=== PATIENT | female | born 1985 | race Caucasian/White ===

== ENCOUNTER 2016-11-27 02:43 | Emergency (ER) | payer SELFPAY ==
--- NOTE | 2016-11-27 03:16 | EDM.PDOC ---
ED HPI GENERAL MEDICAL PROBLEM - General Chief Complaint: Drug or Alcohol Abuse Stated Complaint: MEDICAL VIA NORTH OVERDOSE Time Seen by Provider: 11/27/16 02:51 Source of Information: Reports: Patient, Police, RN Notes Reviewed History Limitations: Reports: Altered Mental Status, Intoxication - History of Present Illness INITIAL COMMENTS - FREE TEXT/NARRATIVE: 31-year-old female brought in by law enforcement EMS services for evaluation was found at a constitution party unresponsive her significant other called EMS services when she went unresponsive when EMS and law enforcement arrived she was communicating with them she does arouse and will communicate and follow commands does admit to consuming alcohol and Xanax denies any other recreational drugs at this time cannot obtain review of systems secondary to obtunded state 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: Neurological History: Reports: Other (See Below) Other Neuro History: unable to obtain Psychiatric History: Reports: Other (See Below) Other Psychiatric History: unable to obtain Endocrine/Metabolic History: Reports: Other (See Below) Other Endocrine/Metabolic History: unable to obtain Hematologic History: Reports: Other (See Below) Other Hematologic History: unable to obtain Immunologic History: Reports: Other (See Below) Other Immunologic History: unable to obtain Oncologic (Cancer) History: Reports: Other (See Below) Other Oncologic History: unable to obtain Dermatologic History: Reports: Other (See Below) Other Dermatologic History: unable to obtain - Infectious Disease History Infectious Disease History: Reports: Other (See Below) Other Infectious Disease History: unknown Social & Family History - Tobacco Use Smoking Status *Q: Unknown Ever Smoked Second Hand Smoke Exposure: No - Caffeine Use Caffeine Use: Reports: Other Other Caffeine Use: unknown - Recreational Drug Use Recreational Drug Use: Yes Recreational Drug Type: Reports: Xanax ED ROS GENERAL - Review of Systems Review Of Systems: Unable To Obtain - Physical Exam Exam: See Below Text/Narrative:: General: Female obtunded but arousable will follow commands minimally communicative GCS of 13 HEENT: head is atraumatic normocephalic, eyes pupils equal round reactive to light, sclera clear no conjunctivitis appreciated. Ears tympanic membranes clear and reeves landmarks and light reflex are present bilaterally canals are clear. Nose no septal deviation, nares are clear, no blood present. Mouth mucosa is moist and pink no erythema or exudate noted in soft palate, tongue is midline uvula is midline, dentition is intact. Neck: Supple no thyromegaly no tracheal deviation. Nodes: Cervical nodes subclavicular nodes nontender no palpable lymphadenopathy noted. Lungs: clear to auscultation bilaterally with symmetrical respirations, no adventitious noise appreciated. CV: Regular rate and rhythm S1 and S2 appreciated no murmurs rubs or gallops noted. Abdomen: Soft, nontender, no palpable masses or organomegaly appreciated, no distention no guarding bowel sounds are present, . Neuro: Cranial nerves II through XII grossly intact Skin: Warm and dry, intact Extremities: No lower extremity edema appreciated, Course - Vital Signs Last Recorded V/S: Last Vital Signs Temp 95.7 F 11/27/16 02:51 Pulse 72 11/27/16 03:01 Resp 16 11/27/16 03:01 BP 120/87 11/27/16 03:01 Pulse Ox 94 L 11/27/16 03:01 - Orders/Labs/Meds Orders: Active Orders 24 hr Category Date Time Status EKG Documentation Completion [RC] ASDIRECTED Care 11/27/16 03:12 Active ACETAMINOPHEN [CHEM] Urgent Lab 11/27/16 03:11 Ordered CBC WITH AUTO DIFF [HEME] Urgent Lab 11/27/16 03:11 Ordered COMPREHENSIVE METABOLIC PN,CMP [CHEM] Urgent Lab 11/27/16 03:11 Ordered DRUG SCREEN,SERUM REFLEX [REF] Stat Lab 11/27/16 03:13 Ordered ETHANOL BLOOD MEDICAL [CHEM] Urgent Lab 11/27/16 03:11 Ordered SALICYLATE [CHEM] Urgent Lab 11/27/16 03:11 Ordered Sodium Chloride 0.9% [Normal Saline] 1,000 ml Med 11/27/16 04:00 Active IV ASDIRECTED EKG 12 Lead [EK] Stat Ther 11/27/16 03:12 Ordered Medication Orders Sodium Chloride (Normal Saline) 1,000 mls @ 999 mls/hr IV ASDIRECTED [facility] Labs: Laboratory Tests 11/27/16 11/27/16 Range/Units 03:22 03:22 Urine Color Yellow Urine Appearance Clear Urine pH 6.0 (4.5-8.0) Ur Specific [place] 1.010 (1.008-1.030) Urine Protein Negative (NEGATIVE) mg/dL Urine Glucose (UA) Normal (NEGATIVE) mg/dL Urine Ketones Negative (NEGATIVE) mg/dL Urine Occult Blood Negative (NEGATIVE) Urine Nitrite Negative (NEGATIVE) Urine Bilirubin Negative (NEGATIVE) Urine Urobilinogen 1 (NORMAL) mg/dL Ur Leukocyte Esterase Negative (NEGATIVE) Urine RBC 0-5 (0-5) Urine WBC 0-5 (0-5) Ur Epithelial Cells Few Amorphous Sediment Not seen Urine Bacteria Not seen Urine Mucus Not seen Urine HCG, Qual Negative Meds: Medications Generic Name Dose Route Start Last Admin Trade Name Freq PRN Reason Stop Dose Admin Sodium Chloride 1,000 mls @ 999 mls/hr 11/27/16 04:00 Normal Saline IV ASDIRECTED [facility] - Re-Assessments/Exams Free Text/Narrative Re-Assessment/Exam: 11/27/16 03:50 Patient is now arousable and communicative states she would like to go home she does have a residence that she can stat with a friend's house 2 blocks from the hospital she would like to walk. She declines any further intervention at this time Departure - Departure Time of Disposition: 03:51 Disposition: Home, Self-Care 01 Condition: Fair Clinical Impression: Intoxication - Discharge Information Referrals: PCP,None [Primary Care Provider] - Forms: ED Department Discharge Additional Instructions: Please follow-up with your primary care provider as needed, call or return to the emergency department worsening of symptoms - My Orders Last 24 Hours: My Active Orders 11/27/16 03:11 ACETAMINOPHEN [CHEM] Urgent CBC WITH AUTO DIFF [HEME] Urgent COMPREHENSIVE METABOLIC PN,CMP [CHEM] Urgent ETHANOL BLOOD MEDICAL [CHEM] Urgent SALICYLATE [CHEM] Urgent 11/27/16 03:12 EKG Documentation Completion [RC] ASDIRECTED EKG 12 Lead [EK] Stat 11/27/16 03:13 DRUG SCREEN,SERUM REFLEX [REF] Stat 11/27/16 04:00 Sodium Chloride 0.9% [Normal Saline] 1,000 ml IV ASDIRECTED - Assessment/Plan Last 24 Hours: My Active Orders 11/27/16 03:11 ACETAMINOPHEN [CHEM] Urgent CBC WITH AUTO DIFF [HEME] Urgent COMPREHENSIVE METABOLIC PN,CMP [CHEM] Urgent ETHANOL BLOOD MEDICAL [CHEM] Urgent SALICYLATE [CHEM] Urgent 11/27/16 03:12 EKG Documentation Completion [RC] ASDIRECTED EKG 12 Lead [EK] Stat 11/27/16 03:13 DRUG SCREEN,SERUM REFLEX [REF] Stat 11/27/16 04:00 Sodium Chloride 0.9% [Normal Saline] 1,000 ml IV ASDIRECTED Plan: Assessment Acuity = acute Site and laterality = intoxication Etiology = probable combination of alcohol and benzodiazepines Manifestations = obtunded state now resolved Location of injury = Home Lab values = urinalysis pending Plan She refused any further care she does have a place to go to where she feels safe therefore I'm willing to discharge her follow-up with her primary care as needed Patient was in agreement with the plan all questions were answered, they were instructed to return to the emergency department or call for worsening symptoms. This note was dictated using [employer] voice recognition software please call with any questions.
[2016-11-27] MEDS ORDERED: Sodium Chloride 0.9% 1,000 ML IV SCH (04:00)
== END 2016-11-27 04:40 | disposition home or self-care (01) ==
LOC: JP.ED 02:43
DX: F10.120 Alcohol abuse with intoxication, uncomplicated (principal)
CPT/HCPCS: 80305; 81001; 81025; 93005; 96360; 99284; J7040; 93010; 99283

== ENCOUNTER 2020-03-10 00:31 | Emergency (ER) | payer SELFPAY ==
--- NOTE | 2020-03-10 01:04 | EDM.PDOC ---
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 The patient symptoms started 2 days ago and have continued to worsen. Patient is but is unclear as to whether she has 2 months or 5 months . She reports her last period was in September 2019. She has had no care. He has no primary doctor. Patient did report to nursing that she occasionally uses marijuana and methamphetamines. The patient is G5, P4004. She denies any fever, chills, nausea or vomiting, diarrhea or constipation. She is not had any urinary symptoms including urgency, frequency, or burning with urination. She does have severe right-sided flank pain. right flank Pain Score (Numeric/FACES): 7 - Related Data Allergies Allergy/AdvReac Type Severity Reaction Status Date / Time No Known Allergies Allergy Verified 03/10/20 00:58 Home Meds: Home Meds NK [No Known Home Meds] 03/10/20 [History] Past Medical History HEENT History: Reports: Other (See Below) Other HEENT History: unable to obtain Cardiovascular History: Reports: Other (See Below) Other Cardiovascular History: unable to obtain Respiratory History: Reports: Other (See Below) Other Respiratory History: unable to obtain Gastrointestinal History: Reports: Other (See Below) Other Gastrointestinal History: unable to obtain Genitourinary History: Reports: Other (See Below) Other Genitourinary History: unable to obtain 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: Neurological History: Reports: Other (See Below) Other Neuro History: unable to obtain Psychiatric History: Reports: Other (See Below) Other Psychiatric History: unable to obtain Endocrine/Metabolic History: Reports: Other (See Below) Other Endocrine/Metabolic History: unable to obtain Hematologic History: Reports: Other (See Below) Other Hematologic History: unable to obtain Immunologic History: Reports: Other (See Below) Other Immunologic History: unable to obtain Oncologic (Cancer) History: Reports: Other (See Below) Other Oncologic History: unable to obtain Dermatologic History: Reports: Other (See Below) Other Dermatologic History: unable to obtain - Infectious Disease History Infectious Disease History: Reports: Other (See Below) Other Infectious Disease History: pt does not know Social & Family History - Tobacco Use Tobacco Use Status *Q: Never Tobacco User - Caffeine Use Caffeine Use: Reports: Coffee Other Caffeine Use: unknown - Recreational Drug Use Recreational Drug Use: Yes Drug Use in Last 12 Months: Yes Recreational Drug Type: Reports: Marijuana/Hashish, Methamphetamine ED ROS GENERAL - Review of Systems Review Of Systems: See Below Constitutional: Reports: No Symptoms HEENT: Reports: No Symptoms Respiratory: Reports: No Symptoms Cardiovascular: Reports: No Symptoms Endocrine: Reports: No Symptoms GI/Abdominal: Reports: Abdominal Pain (Right upper quadrant), Nausea. Denies: Vomiting : Reports: Flank Pain (Right flank) Musculoskeletal: Reports: No Symptoms Skin: Reports: No Symptoms Neurological: Reports: No Symptoms Psychiatric: Reports: No Symptoms Hematologic/Lymphatic: Reports: No Symptoms Immunologic: Reports: No Symptoms ED EXAM - Physical Exam Exam: See Below Exam Limited By: No Limitations General Appearance: Alert, Anxious, Moderate Distress Eye Exam: Bilateral Eye: EOMI, PERRL Head: Atraumatic, Normocephalic Neck: Normal Inspection, Supple, Non-Tender, Full Range of Motion Respiratory/Chest: No Respiratory Distress, Lungs Clear, Normal Breath Sounds Cardiovascular: Normal Peripheral Pulses, Regular Rate, Rhythm, No Murmur GI/Abdominal Exam: Normal Bowel Sounds, Soft, Tender (Tenderness palpation right upper quadrant and right flank). No: Guarding, Rigid, Rebound Fundal Height In cm: 20 Heart Tones per Min: 138 Movement: Active Back Exam: Normal Inspection, Full Range of Motion, CVA Tenderness (R) Extremities: Normal Inspection, Normal Range of Motion, No Pedal Edema, Normal Capillary Refill Neurological: Alert, Oriented, Normal Cognition, No Motor/Sensory Deficits Psychiatric: Anxious, Other (Patient is not very forthcoming with answers and does appear to be under the influence of something at this time.) Skin Exam: Warm, Dry, Intact, Normal Color, No Rash Lymphatic: No Adenopathy Course - Vital Signs Last Recorded V/S: Last Vital Signs Temp 36.5 C 03/10/20 01:02 Pulse 85 03/10/20 01:02 Resp 20 03/10/20 01:02 BP 122/70 03/10/20 01:02 Pulse Ox 100 03/10/20 01:02 - Orders/Labs/Meds Orders: Active Orders 24 hr Category Date Time Status Renal Ltd Bi [US] Stat Exams 03/10/20 01:25 Ordered DRUG SCREEN, URINE [URCHEM] Stat Lab 03/10/20 01:12 Received HCG QUANTITATIVE [CHEM] Stat Lab 03/10/20 00:58 Ordered Labs: Laboratory Tests 03/10/20 03/10/20 Range/Units 01:05 01:12 WBC 12.4 H (4.5-11.0) K/uL RBC 3.96 (3.30-5.50) M/uL Hgb 11.5 L (12.0-15.0) g/dL Hct 35.5 L (36.0-48.0) % MCV 90 (80-98) fL MCH 29 (27-31) pg MCHC 32 (32-36) % Plt Count 471 H (150-400) K/uL Neut % (Auto) 71 H (36-66) % Lymph % (Auto) 21 L (24-44) % [place] % (Auto) 7 H (2-6) % Eos % (Auto) 2 (2-4) % Baso % (Auto) 0 (0-1) % Urine Color Yellow (YELLOW) Urine Appearance Cloudy A (CLEAR) Urine pH 7.0 (5.0-8.0) Ur Specific [place] >= 1.030 (1.008-1.030) Urine Protein >=300 H (NEGATIVE) mg/dL Urine Glucose (UA) Negative (NEGATIVE) mg/dL Urine Ketones Negative (NEGATIVE) mg/dL Urine Occult Blood Small H (NEGATIVE) Urine Nitrite Positive H (NEGATIVE) Urine Bilirubin Negative (NEGATIVE) Urine Urobilinogen 4.0 H (0.2-1.0) EU/dL Ur Leukocyte Esterase Moderate H (NEGATIVE) Urine RBC (0-5) Urine WBC Packed H (0-5) - Radiology Interpretation Free Text/Narrative:: I performed a limited OB bedside ultrasound to evaluate for viability. There is a single intrauterine with a heart rate measured at 138 bpm by M-mode. The child size is calculated at 20 weeks 5 days by femur length and 21 weeks 1 day by biparietal diameter. There is an anterior placenta which looks to be grade 2. There is an adequate amount of amniotic fluid. A brief look at the right kidney shows hydronephrosis. We will get a formal ultrasound of the bilateral kidneys to assess for possible obstruction. Formal ultrasound of both kidneys show right-sided hydronephrosis with diminished ureteral jet in the bladder on the right side compared to the left. The left side kidney is normal size and caliber with normal urinary flow. Formal reading will result in the morning. - Re-Assessments/Exams Free Text/Narrative Re-Assessment/Exam: 03/10/20 01:29 the patient has a mild leukocytosis of 12.6 with a left shift. Her urinalysis is significant for pyuria with packed WBCs per high field view, positive nitrites and leukocyte esterase. We will get a urine culture and initiate antibiotics with cephalexin 500 mg twice daily. 03/10/20 02:37 ultrasound is complete and demonstrates right-sided hydronephrosis which is worrisome for partial obstruction of the ureter due to the . I will discussed the case with urology at [facility] to give recommendations on management of this. Certainly we will continue to treat the pyelonephritis with cephalexin 500 mg twice daily, the question is timing of whether or not this patient needs a stent. As there is an infection this may require more emergent intervention. 03/10/20 02:51 I discussed the case with the urologist from [facility]. He recommended we could either try several days of antibiotics and possibly avoid eating a ureteral stent if she improves, but that she would need to have close interval follow-up in the clinic in 1 to 2 days to make sure she is not becoming septic. I have instructed the patient to return to the ED should she develop any significant fever or worsening of pain. An alternative would be to transfer her tonight to [facility] for admission and then stent placement in the morning. The patient would rather follow-up in the clinic on Thursday or Thursday so I will put in a request for follow-up. We will continue with the cephalexin 500 mg twice daily. Urine culture is pending. Indications to return to the ED were discussed. Patient was discharged in satisfactory condition. Departure - Departure Time of Disposition: 02:55 Disposition: Home, Self-Care 01 Clinical Impression: Pyelonephritis affecting in second trimester, with 21 completed weeks gestation, Marijuana use, episodic, Methamphetamine use, Hydronephrosis of right kidney - Discharge Information Instructions: Preventing Illegal Drug Use During , Pyelonephritis During , Care Referrals: PCP,None [Primary Care Provider] - Forms: ED Department Discharge Care Plan Goals: Your labs show a significant urinary tract infection including your kidney. We will start you on antibiotics with cephalexin 500 mg twice daily for 10 days. Urine culture has been obtained and you may be contacted if the organism causing the infection is resistant to this antibiotic. You need to continue to push plenty of fluids to produce urine to help keep the ureter open. You need to see a primary care provider as soon as possible to establish care of this . This would include the initiation of a multivitamin with folate which is very important in the development of the nerve tissue of the fetus. I would encourage you to discontinue the use of marijuana and methamphetamines during this as it will result in alteration of the fetus that will be lifelong. I have placed a referral for you to follow-up in the [facility] in [place] on Thursday or Thursday. You will be contacted Thursday to arrange this appointment. Should you develop any significant fever or chills please return to the ED immediately as this may be early signs of developing septic shock. Please fill and take your prescription antibiotics as prescribed. Sepsis Event Note (ED) - Focused Exam Vital Signs: Vital Signs Temp Pulse Resp BP Pulse Ox 03/10/20 01:02 36.5 C 85 20 122/70 100 - Problem List & Annotations (1) Marijuana use, episodic SNOMED Code(s): 319952942 Code(s): F12.90 - CANNABIS USE, UNSPECIFIED, UNCOMPLICATED Status: Chronic Priority: High Current Visit: Yes (2) Methamphetamine use SNOMED Code(s): 052936366 Code(s): F15.10 - OTHER STIMULANT ABUSE, UNCOMPLICATED Status: Chronic Priority: High Current Visit: Yes (3) with 21 completed weeks gestation SNOMED Code(s): 44633081 Code(s): Z3A.21 - 21 WEEKS GESTATION OF Status: Acute Priority: High Current Visit: Yes (4) Pyelonephritis affecting in second trimester SNOMED Code(s): 31256973761678, 38395118890678 Code(s): O23.02 - INFECTIONS OF KIDNEY IN , SECOND TRIMESTER Status: Acute Priority: High Current Visit: Yes (5) Hydronephrosis of right kidney SNOMED Code(s): 91645740 Code(s): N13.30 - UNSPECIFIED HYDRONEPHROSIS Status: Acute Priority: High Current Visit: Yes - Problem List Review Problem List Initiated/Reviewed/Updated: Yes - My Orders Last 24 Hours: My Active Orders 03/10/20 00:58 HCG QUANTITATIVE [CHEM] Stat 03/10/20 01:12 DRUG SCREEN, URINE [URCHEM] Stat 03/10/20 01:25 Renal Ltd Bi [US] Stat - Assessment/Plan Last 24 Hours: My Active Orders 03/10/20 00:58 HCG QUANTITATIVE [CHEM] Stat 03/10/20 01:12 DRUG SCREEN, URINE [URCHEM] Stat 03/10/20 01:25 Renal Ltd Bi [US] Stat
[2020-03-10] MEDS ORDERED: Cephalexin 250 MG Cap PO ONE (01:32)
--- NOTE | 2020-03-12 09:01 | US ---
Renal Ltd Bi CLINICAL HISTORY: Right flank pain. COMPARISON: None. TECHNIQUE: Multiple sonographic images were obtained through the kidneys in the sagittal and transverse projections. Right kidney measures 12.2 x 5.4 x 6.2 cm. There is hydronephrosis. Cortical thickness is 1.9 cm. No stones are seen Left kidney measures 10.0 x 6.0 x 6.9 cm. It is normal parenchymal echotexture. Cortex measures 1.5 cm. Scans through the bladder shows no filling defects. Bilateral ureteral jets are identified.. No stones are seen IMPRESSION: Right-sided hydronephrosis Patent right ureter with a right ureteral jet seen in the bladder. Partial obstruction is not excluded
== END 2020-03-10 03:07 | disposition home or self-care (01) ==
LOC: JP.ED 00:31
DX: O23.02 Infections of kidney in pregnancy, second trimester (principal); N13.6 Pyonephrosis; B96.89 Other specified bacterial agents as the cause of diseases classified elsewhere; F15.90 Other stimulant use, unspecified, uncomplicated; F12.90 Cannabis use, unspecified, uncomplicated; Z3A.21 21 weeks gestation of pregnancy
CPT/HCPCS: 36415; 76775; 80305; 81001; 84702; 85025; 87086; 87088; 87186; 99284; A9270

== ENCOUNTER 2020-11-21 19:58 | Emergency (ER) | payer MEDICAID ==
[2020-11-21] MEDS ORDERED: HYDROmorphone 0.5 MG/0.5 ML Syringe IVPUSH ONE (20:37)
[2020-11-21] MEDS ORDERED: Sodium Chloride 0.9% 1,000 ML IV SCH ×2 (20:45→22:45)
[2020-11-21] MEDS ORDERED: cefTRIAXone 2 GM in Sodium Chloride 0.9% 50 ML IV ONE (21:22)
--- NOTE | 2020-11-21 22:50 | EDM.PDOC ---
ED HPI GENERAL MEDICAL PROBLEM - General Chief Complaint: Abdominal Pain Stated Complaint: ABD/BACK PAIN Time Seen by Provider: 11/21/20 20:30 Source of Information: Reports: Patient, Family History Limitations: Reports: No Limitations - History of Present Illness INITIAL COMMENTS - FREE TEXT/NARRATIVE: pt arrived with a history of recurrent UTIs. She has back pain and some lower abdomanal pin. She has had chills. She has not been vomiting. Onset: Gradual, Other (last 2 days. ) Duration: Hour(s): Location: Reports: Abdomen Associated Symptoms: Reports: Weakness Abdomen Pain Score (Numeric/FACES): 8 - Related Data Allergies Allergy/AdvReac Type Severity Reaction Status Date / Time Latex, Natural Rubber Allergy Rash Verified 11/21/20 20:25 Home Meds: Home Meds NK [No Known Home Meds] 03/10/20 [History] Past Medical History HEENT History: Reports: Other (See Below) Other HEENT History: unable to obtain Cardiovascular History: Reports: Other (See Below) Other Cardiovascular History: unable to obtain Respiratory History: Reports: Other (See Below) Other Respiratory History: unable to obtain Gastrointestinal History: Reports: Other (See Below) Other Gastrointestinal History: unable to obtain Genitourinary History: Reports: Pyelonephritis Other Genitourinary History: unable to obtain 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: Neurological History: Reports: Concussion Other Neuro History: unable to obtain Psychiatric History: Reports: Addiction, Anxiety, Depression, PTSD Other Psychiatric History: unable to obtain Endocrine/Metabolic History: Reports: Other (See Below) Other Endocrine/Metabolic History: unable to obtain Hematologic History: Reports: Other (See Below) Other Hematologic History: unable to obtain Immunologic History: Reports: Other (See Below) Other Immunologic History: unable to obtain Oncologic (Cancer) History: Reports: Other (See Below) Other Oncologic History: unable to obtain Dermatologic History: Reports: Other (See Below) Other Dermatologic History: unable to obtain - Infectious Disease History Infectious Disease History: Reports: Other (See Below) Other Infectious Disease History: pt does not know Social & Family History - Tobacco Use Tobacco Use Status *Q: Never Tobacco User - Caffeine Use Caffeine Use: Reports: Coffee, Tea Other Caffeine Use: unknown - Recreational Drug Use Recreational Drug Use: Yes Recreational Drug Type: Reports: Marijuana/Hashish, Methamphetamine Recreational Drug Use Frequency: Weekly ED ROS GENERAL - Review of Systems Review Of Systems: See Below Constitutional: Reports: Fever, Chills HEENT: Reports: No Symptoms Respiratory: Reports: No Symptoms Cardiovascular: Reports: No Symptoms Endocrine: Reports: No Symptoms GI/Abdominal: Reports: Abdominal Pain : Reports: Frequency, Urgency, Other ( some burning. ) Musculoskeletal: Reports: No Symptoms Skin: Reports: No Symptoms ED EXAM, GI/ABD - Physical Exam Exam: See Below Text/Narrative:: pt arrived with a history of lower abdomanal pain. She has been having chills. Exam Limited By: No Limitations General Appearance: Alert, Anxious Ears: Normal TMs Nose: Normal Inspection Throat/Mouth: Normal Inspection Head: Atraumatic Neck: Normal Inspection Respiratory/Chest: No Respiratory Distress Cardiovascular: Regular Rate, Rhythm GI/Abdominal Exam: Soft, Other ( abdoman is soft. ) (Female) Exam: Deferred Rectal (Female) Exam: Deferred Back Exam: Normal Inspection Extremities: Normal Inspection Course - Vital Signs Last Recorded V/S: Last Vital Signs Temp 37.3 C 11/21/20 20:18 Pulse 92 11/21/20 21:40 Resp 16 11/21/20 21:40 BP 102/60 11/21/20 21:40 Pulse Ox 100 11/21/20 21:40 - Orders/Labs/Meds Orders: Active Orders 24 hr Category Date Time Status CULTURE URINE [RM] Stat Lab 11/21/20 20:58 Received Sodium Chloride 0.9% [Normal Saline] 1,000 ml Med 11/21/20 20:45 Active IV ASDIRECTED Sodium Chloride 0.9% [Normal Saline] 1,000 ml Med 11/21/20 22:45 Active IV ASDIRECTED Medication Orders Sodium Chloride (Normal Saline) 1,000 mls @ 999 mls/hr IV ASDIRECTED DARRELL Last Admin: 11/21/20 20:57 Dose: 999 mls/hr Documented by: GREG Sodium Chloride (Normal Saline) 1,000 mls @ 999 mls/hr IV ASDIRECTED DARRELL Last Admin: 11/21/20 22:38 Dose: 999 mls/hr Documented by: GREG Labs: Laboratory Tests 11/21/20 11/21/20 11/21/20 Range/Units 20:35 20:48 20:54 WBC 12.1 H (4.5-11.0) K/uL RBC 4.02 (3.30-5.50) M/uL Hgb 10.6 L (12.0-15.0) g/dL Hct 33.0 L (36.0-48.0) % MCV 82 (80-98) fL MCH 26 L (27-31) pg MCHC 32 (32-36) % Plt Count 408 H (150-400) K/uL Neut % (Auto) 70.3 H (36-66) % Lymph % (Auto) 18.9 L (24-44) % Falls % (Auto) 8.2 H (2-6) % Eos % (Auto) 2.4 (2-4) % Baso % (Auto) 0.2 (0-1) % Sodium (140-148) mmol/L Potassium (3.6-5.2) mmol/L Chloride (100-108) mmol/L Carbon Dioxide (21-32) mmol/L Anion Gap (5.0-14.0) mmol/L BUN (7-18) mg/dL Creatinine (0.6-1.0) mg/dL Est Cr Clr Drug Dosing mL/min Estimated GFR (MDRD) (>60) Glucose (74-106) mg/dL Calcium (8.5-10.1) mg/dL Total Bilirubin (0.2-1.0) mg/dL AST (15-37) U/L ALT (12-78) U/L Alkaline Phosphatase (46-116) U/L C-Reactive Protein 10.71 H (0.0-0.3) mg/dL Total Protein (6.4-8.2) g/dL Albumin (3.4-5.0) g/dL Globulin (2.3-3.5) g/dL Albumin/Globulin Ratio (1.2-2.2) Urine Color Yellow (YELLOW) Urine Appearance Slightly cloudy A (CLEAR) Urine pH 7.0 (5.0-8.0) Ur Specific [place] 1.025 (1.008-1.030) Urine Protein Trace H (NEGATIVE) mg/dL Urine Glucose (UA) Negative (NEGATIVE) mg/dL Urine Ketones Negative (NEGATIVE) mg/dL Urine Occult Blood Negative (NEGATIVE) Urine Nitrite Negative (NEGATIVE) Urine Bilirubin Small H (NEGATIVE) Urine Urobilinogen >=8.0 H (0.2-1.0) EU/dL Ur Leukocyte Esterase Small H (NEGATIVE) Urine RBC 0-5 (0-5) Urine WBC 10-20 H (0-5) Ur Epithelial Cells Many Amorphous Sediment Not seen Urine Bacteria Many Urine Mucus Many 11/21/20 Range/Units 20:54 WBC (4.5-11.0) K/uL RBC (3.30-5.50) M/uL Hgb (12.0-15.0) g/dL Hct (36.0-48.0) % MCV (80-98) fL MCH (27-31) pg MCHC (32-36) % Plt Count (150-400) K/uL Neut % (Auto) (36-66) % Lymph % (Auto) (24-44) % Falls % (Auto) (2-6) % Eos % (Auto) (2-4) % Baso % (Auto) (0-1) % Sodium 139 L (140-148) mmol/L Potassium 3.7 (3.6-5.2) mmol/L Chloride 105 (100-108) mmol/L Carbon Dioxide 26 (21-32) mmol/L Anion Gap 11.7 (5.0-14.0) mmol/L BUN 8 D (7-18) mg/dL Creatinine 0.7 (0.6-1.0) mg/dL Est Cr Clr Drug Dosing 115.31 mL/min Estimated GFR (MDRD) > 60 (>60) Glucose 104 (74-106) mg/dL Calcium 8.3 L (8.5-10.1) mg/dL Total Bilirubin 0.2 (0.2-1.0) mg/dL AST 14 L (15-37) U/L ALT 19 (12-78) U/L Alkaline Phosphatase 64 (46-116) U/L C-Reactive Protein (0.0-0.3) mg/dL Total Protein 5.8 L (6.4-8.2) g/dL Albumin 3.0 L (3.4-5.0) g/dL Globulin 2.8 (2.3-3.5) g/dL Albumin/Globulin Ratio 1.1 L (1.2-2.2) Urine Color (YELLOW) Urine Appearance (CLEAR) Urine pH (5.0-8.0) Ur Specific [place] (1.008-1.030) Urine Protein (NEGATIVE) mg/dL Urine Glucose (UA) (NEGATIVE) mg/dL Urine Ketones (NEGATIVE) mg/dL Urine Occult Blood (NEGATIVE) Urine Nitrite (NEGATIVE) Urine Bilirubin (NEGATIVE) Urine Urobilinogen (0.2-1.0) EU/dL Ur Leukocyte Esterase (NEGATIVE) Urine RBC (0-5) Urine WBC (0-5) Ur Epithelial Cells Amorphous Sediment Urine Bacteria Urine Mucus Meds: Medications Generic Name Dose Route Start Last Admin Trade Name Freq PRN Reason Stop Dose Admin Sodium Chloride 1,000 mls @ 999 mls/hr 11/21/20 20:45 11/21/20 20:57 Normal Saline IV 999 mls/hr ASDIRECTED DARRELL Administration Sodium Chloride 1,000 mls @ 999 mls/hr 11/21/20 22:45 11/21/20 22:38 Normal Saline IV 999 mls/hr ASDIRECTED DARRELL Administration Discontinued Medications Generic Name Dose Route Start Last Admin Trade Name Freq PRN Reason Stop Dose Admin Hydromorphone HCl 0.5 mg 11/21/20 20:37 11/21/20 20:58 Hydromorphone 0.5 Mg/0.5 Ml Syringe IVPUSH 11/21/20 20:38 0.5 mg ONETIME ONE Administration Ceftriaxone Sodium 2 gm/ 50 mls @ 100 mls/hr 11/21/20 21:22 11/21/20 21:48 Sodium Chloride IV 11/21/20 21:51 100 mls/hr ONETIME ONE Administration - Re-Assessments/Exams Free Text/Narrative Re-Assessment/Exam: 11/21/20 23:01 pt was given 2 liters of fluid--normal saline, rocehen 2 gm and dilauidid .5. She is feeling much better. Her urine looked quite infected. A urine culture was set up. Departure - Departure Time of Disposition: 23:03 Disposition: Home, Self-Care 01 Condition: Fair Clinical Impression: UTI (urinary tract infection), Dehydration - Discharge Information Referrals: PCP,None [Primary Care Provider] - Forms: ED Department Discharge Care Plan Goals: rtc if abdomanal pain should reoccur or get worse, will notify of the culture result, push fluids, cipro 500mg bid for 10 days. Sepsis Event Note (ED) - Evaluation Sepsis Screening Result: No Definite Risk - Focused Exam Vital Signs: Vital Signs Temp Pulse Resp BP Pulse Ox 11/21/20 21:40 92 16 102/60 100 11/21/20 20:18 37.3 C 94 16 99/66 100 11/21/20 20:14 37.3 C 94 16 99/66 100 - My Orders Last 24 Hours: My Active Orders 11/21/20 20:45 Sodium Chloride 0.9% [Normal Saline] 1,000 ml IV ASDIRECTED 11/21/20 20:58 CULTURE URINE [RM] Stat 11/21/20 22:45 Sodium Chloride 0.9% [Normal Saline] 1,000 ml IV ASDIRECTED - Assessment/Plan Last 24 Hours: My Active Orders 11/21/20 20:45 Sodium Chloride 0.9% [Normal Saline] 1,000 ml IV ASDIRECTED 11/21/20 20:58 CULTURE URINE [RM] Stat 11/21/20 22:45 Sodium Chloride 0.9% [Normal Saline] 1,000 ml IV ASDIRECTED
== END 2020-11-21 23:19 | disposition home or self-care (01) ==
LOC: JP.ED 19:58
DX: N39.0 Urinary tract infection, site not specified (principal); E86.0 Dehydration; Z91.040 Latex allergy status
CPT/HCPCS: 36415; 80053; 81001; 85025; 86140; 87086; 96365; 96375; 99284; J0696; J1170; J7030

== ENCOUNTER 2024-02-20 01:29 | Emergency (ER) | payer MEDICAID ==
[2024-02-20 02:09] LABS: BILIRUBIN,URINE SMALL (NEGATIVE); COLOR,URINE YELLOW (YELLOW); GLUCOSE,URINE NEGATIVE (NEGATIVE); KETONES,URINE NEGATIVE (NEGATIVE); LEUKOCYTE ESTERASE,URINE TRACE (NEGATIVE); NITRITE,URINE NEGATIVE (NEGATIVE); OCCULT BLOOD,URINE NEGATIVE (NEGATIVE); PH,URINE 8.5 (5.0-8.0); PROTEIN,URINE 100 mg/dL (NEGATIVE); UROBILINOGEN,URINE >=8.0 EU/dL (0.2-1.0)
[2024-02-20 02:13] LABS: APPEARANCE,URINE CLOUDY (CLEAR); RBC,URINE 0-5 (0-5)
[2024-02-20 02:14] LABS: AMORPHOUS SEDIMENT,URINE NOT SEEN; BACTERIA,URINE FEW; EPITHELIAL CELLS,URINE MANY; MUCUS,URINE NOT SEEN
[2024-02-20 02:18] LABS: CORONAVIRUS COVID-19 NAA NEGATIVE (NEGATIVE); INFLUENZA A NAA POSITIVE (NEGATIVE); INFLUENZA B NAA NEGATIVE (NEGATIVE); RESPIRATORY SYNCYTIAL VIR NAA NEGATIVE (NEGATIVE)
[2024-02-20] MEDS: Codeine/guaiFENesin 10-100 MG/5 ML Syrup 5 ML Cup PO ONE (02:34)
[2024-02-20] MEDS: Ketorolac 30 MG/ML SDV IM ONE (02:34)
== END 2024-02-20 02:56 | disposition home or self-care (01) ==
LOC: JP.ED 01:29
DX: J10.1 Influenza due to other identified influenza virus with other respiratory manifestations (principal); Z91.040 Latex allergy status
CPT/HCPCS: 0241U; 81001; 87086; 96372; 99283; A9270; J1885